=== PATIENT | male | born 2005 | race Asian ===

== ENCOUNTER 2024-01-30 20:02 | Inpatient (IN) | payer OTHER ==
[~2024-01-30] VITALS: Ht 175.3 cm; Wt 75.0 kg
[2024-01-30] MEDS ORDERED: ONDANSETRON HCL 4 MG/2 ML VIAL IVP PRN (23:45)
[2024-01-30] MEDS ORDERED: ACETAMINOPHEN 325 MG TABLET PO PRN (23:45)
[2024-01-31] MEDS: HEPARIN SODIUM,PORCINE 5,000 UNITS/ML VIAL SQ SCH
[2024-01-31 01:30] VITALS: BP 129/74; PULSE 91; RESP 18; TEMP 97.7
[2024-01-31 06:48] LABS: BASOPHILS % (AUTO) 0.5 % (0.0-2.0); HEMATOCRIT 44.5 % (41-53); HEMOGLOBIN 14.8 g/dL (13.5-17.5); LYMPHOCYTES # (AUTO) 3.1 K/uL (1.0-4.8); LYMPHOCYTES % (AUTO) 44.1 % (22.0-44.0); MEAN CORPUSCULAR HEMOGLOBIN 29.6 pg (26.0-34.0); MEAN CORPUSCULAR HGB CONC 33.2 G/dL (31.0-37.0); MEAN CORPUSCULAR VOLUME 89 fL (80-100); MONOCYTES # (AUTO) 0.6 K/uL (0.1-1.0); NEUTROPHILS # (AUTO) 3.1 K/uL (1.8-7.7); NEUTROPHILS % (AUTO) 44.4 % (40.0-70.0); PLATELET COUNT (AUTO) 163 K/uL (150-450); RED CELL DISTRIBUTION WIDTH 13.1 % (11.5-14.5); WHITE BLOOD COUNT (AUTO) 6.9 K/uL (4.5-11.0)
[2024-01-31 07:06] LABS: ANION GAP 11 mmol/L (8-16); CALCIUM, TOTAL 9.9 mg/dL (8.8-10.5); CARBON DIOXIDE 26 mmol/L (22-29); CHLORIDE 102 mmol/L (98-107); CREATININE 0.94 mg/dL (0.60-1.30); GLOMERULAR FILTR. RATE CALC > 60 mL/min (>60); GLUCOSE,RANDOM 86 mg/dL (70-110); POTASSIUM 3.9 mmol/L (3.5-5.1); SODIUM SERUM 139 mmol/L (136-145); UREA NITROGEN, BLOOD 11 mg/dL (7-18)
[2024-01-31 08:39] VITALS: BP 122/55; PULSE 78; RESP 18; TEMP 97.9
[2024-01-31] MEDS: DOCUSATE SODIUM 100 MG CAPSULE PO SCH (09:12)
[2024-01-31] MEDS: RIFAMPIN 300 MG CAPSULE PO SCH (09:13)
[2024-01-31 19:48] VITALS: BP 118/69; PULSE 72; RESP 18; TEMP 98.7
[2024-02-01 04:35] VITALS: BP 120/71; PULSE 67; RESP 18; TEMP 97.5
[2024-02-01 08:26] VITALS: BP 110/71; PULSE 74; RESP 18; TEMP 97.6
[2024-02-01 20:16] VITALS: BP 114/67; PULSE 72; RESP 18; TEMP 98.1
[2024-02-02 04:41] VITALS: BP 113/73; PULSE 67; RESP 18; TEMP 97.5
[2024-02-02 08:33] VITALS: BP 104/61; PULSE 80; RESP 18; TEMP 97.4
[2024-02-02 19:27] VITALS: BP 118/70; PULSE 81; RESP 19; TEMP 97.8
[2024-02-03 05:03] VITALS: BP 104/70; PULSE 65; RESP 18; TEMP 97.8
[2024-02-03 08:10] VITALS: BP 105/58; PULSE 80; RESP 19; TEMP 97.9
[2024-02-03 19:38] VITALS: BP 122/67; PULSE 74; RESP 19; TEMP 98.2
[2024-02-04 04:20] VITALS: BP 132/70; PULSE 79; RESP 19; TEMP 97.6
[2024-02-04 08:15] VITALS: BP 100/71; PULSE 71; RESP 18; TEMP 97.7
[2024-02-04 19:45] VITALS: BP 128/89; PULSE 67; RESP 18; TEMP 98
[2024-02-05 04:46] VITALS: BP 112/58; PULSE 71; RESP 18; TEMP 97.6
[2024-02-05 08:00] VITALS: BP 104/67; PULSE 80; RESP 18; TEMP 98.4
[2024-02-05 20:03] VITALS: BP 115/74; PULSE 69; RESP 20; TEMP 98.3
[2024-02-06 04:32] VITALS: BP 116/68; PULSE 70; RESP 20; TEMP 97.6
[2024-02-06 08:28] VITALS: BP 109/67; PULSE 74; RESP 20; TEMP 97.7
[2024-02-06 19:52] VITALS: BP 118/68; PULSE 84; RESP 20; TEMP 98.8
[2024-02-07 05:13] VITALS: BP 125/68; PULSE 75; RESP 20; TEMP 97.7
[2024-02-07 09:14] VITALS: BP 103/71; PULSE 70; RESP 20; TEMP 97.6
[2024-02-07 19:46] VITALS: BP 107/61; PULSE 76; RESP 18; TEMP 98.3
[2024-02-08 05:07] VITALS: BP 110/71; PULSE 65; RESP 18; TEMP 97.6
[2024-02-08 09:22] VITALS: BP 109/67; PULSE 67; RESP 18; TEMP 97.8
[2024-02-08 20:25] VITALS: BP 115/70; PULSE 78; RESP 18; TEMP 98.4
[2024-02-09 04:52] VITALS: BP 106/72; PULSE 85; RESP 18; TEMP 97.6
[2024-02-09 08:35] VITALS: BP 110/61; PULSE 81; RESP 20; TEMP 97.6
[2024-02-09 19:51] VITALS: BP 102/60; PULSE 84; RESP 18; TEMP 98.4
[2024-02-10 04:57] VITALS: BP 119/62; PULSE 66; RESP 18; TEMP 98.5
[2024-02-10 07:45] VITALS: BP 125/58; PULSE 82; RESP 18; TEMP 97.8
[2024-02-10 20:08] VITALS: BP 125/67; PULSE 79; RESP 18; TEMP 97.8
[2024-02-11 05:01] VITALS: BP 113/75; PULSE 76; RESP 18; TEMP 97.8
[2024-02-11 08:46] VITALS: BP 103/53; PULSE 78; RESP 20; TEMP 97.6
[2024-02-11 13:50] LABS: BASOPHILS % (AUTO) 0.5 % (0.0-2.0); EOSINOPHILS % (AUTO) 2.7 % (1.0-6.0); HEMOGLOBIN 14.5 g/dL (13.5-17.5); LYMPHOCYTES # (AUTO) 1.5 K/uL (1.0-4.8); MEAN CORPUSCULAR HEMOGLOBIN 29.4 pg (26.0-34.0); MEAN CORPUSCULAR HGB CONC 33.1 G/dL (31.0-37.0); MEAN CORPUSCULAR VOLUME 89 fL (80-100); MONOCYTES # (AUTO) 0.3 K/uL (0.1-1.0); MONOCYTES % (AUTO) 6.2 % (2.0-9.0); NEUTROPHILS % (AUTO) 60.6 % (40.0-70.0); PLATELET COUNT (AUTO) 168 K/uL (150-450); RED BLOOD CELL COUNT(AUTO) 4.94 MIL/uL (4.50-5.90); RED CELL DISTRIBUTION WIDTH 12.7 % (11.5-14.5); WHITE BLOOD COUNT (AUTO) 4.9 K/uL (4.5-11.0)
[2024-02-11 14:00] LABS: ANION GAP 8 mmol/L (8-16); CALCIUM, TOTAL 9.6 mg/dL (8.8-10.5); CARBON DIOXIDE 32 mmol/L (22-29); CHLORIDE 101 mmol/L (98-107); CREATININE 0.84 mg/dL (0.60-1.30); GLOMERULAR FILTR. RATE CALC > 60 mL/min (>60); GLUCOSE,RANDOM 117 mg/dL (70-110); POTASSIUM 3.5 mmol/L (3.5-5.1); SODIUM SERUM 141 mmol/L (136-145); UREA NITROGEN, BLOOD 8 mg/dL (7-18)
[2024-02-11 14:05] LABS: ALANINE AMINOTRANSFERASE 51 U/L (12-78); ALKALINE PHOSPHATASE 84 U/L (46-116); ASPARTATE AMINOTRANSFERASE 30 U/L (15-37); BILIRUBIN,TOTAL 0.6 mg/dL (0.1-1.0); TOTAL PROTEIN, SERUM 7.9 g/dL (6.4-8.2)
[2024-02-11 20:24] VITALS: BP 113/64; PULSE 73; RESP 20; TEMP 98.1
[2024-02-12 04:49] VITALS: BP 108/66; PULSE 83; RESP 20; TEMP 97.9
[2024-02-12 08:20] LABS: BASOPHILS % (AUTO) 0.5 % (0.0-2.0); EOSINOPHILS % (AUTO) 3.5 % (1.0-6.0); HEMATOCRIT 43.2 % (41-53); HEMOGLOBIN 14.4 g/dL (13.5-17.5); LYMPHOCYTES # (AUTO) 3.1 K/uL (1.0-4.8); LYMPHOCYTES % (AUTO) 44.4 % (22.0-44.0); MEAN CORPUSCULAR HEMOGLOBIN 29.6 pg (26.0-34.0); MEAN CORPUSCULAR HGB CONC 33.3 G/dL (31.0-37.0); MEAN CORPUSCULAR VOLUME 89 fL (80-100); MONOCYTES # (AUTO) 0.6 K/uL (0.1-1.0); NEUTROPHILS % (AUTO) 43.6 % (40.0-70.0); PLATELET COUNT (AUTO) 168 K/uL (150-450); RED BLOOD CELL COUNT(AUTO) 4.86 MIL/uL (4.50-5.90); RED CELL DISTRIBUTION WIDTH 13.1 % (11.5-14.5); WHITE BLOOD COUNT (AUTO) 6.9 K/uL (4.5-11.0)
[2024-02-12 08:31] LABS: ALANINE AMINOTRANSFERASE 45 U/L (12-78); ALBUMIN 3.9 g/dL (3.4-5.0); ALKALINE PHOSPHATASE 81 U/L (46-116); ANION GAP 7 mmol/L (8-16); ASPARTATE AMINOTRANSFERASE 27 U/L (15-37); BILIRUBIN,TOTAL 0.3 mg/dL (0.1-1.0); CALCIUM, TOTAL 9.8 mg/dL (8.8-10.5); CARBON DIOXIDE 31 mmol/L (22-29); CHLORIDE 103 mmol/L (98-107); CREATININE 0.92 mg/dL (0.60-1.30); GLOMERULAR FILTR. RATE CALC > 60 mL/min (>60); GLUCOSE,RANDOM 90 mg/dL (70-110); POTASSIUM 3.9 mmol/L (3.5-5.1); SODIUM SERUM 141 mmol/L (136-145); TOTAL PROTEIN, SERUM 7.7 g/dL (6.4-8.2); UREA NITROGEN, BLOOD 9 mg/dL (7-18)
[2024-02-12 09:22] VITALS: BP 107/63; PULSE 67; RESP 18; TEMP 97.9
[2024-02-12 20:03] VITALS: BP 114/80; PULSE 75; RESP 18; TEMP 97.6
[2024-02-13 04:49] VITALS: BP 109/62; PULSE 92; RESP 18; TEMP 97.8
[2024-02-13 08:24] VITALS: BP 120/64; PULSE 79; RESP 18; TEMP 98
[2024-02-13 19:18] VITALS: BP 124/69; PULSE 79; RESP 18; TEMP 98.5
[2024-02-14 04:30] VITALS: BP 113/65; PULSE 76; RESP 18; TEMP 98.3
[2024-02-14 07:37] VITALS: BP 98/78; PULSE 91; RESP 18; TEMP 97.8
[2024-02-14 19:52] VITALS: BP 111/68; PULSE 75; RESP 18; TEMP 98.2
[2024-02-15 04:53] VITALS: BP 114/67; PULSE 92; RESP 18; TEMP 97.8
[2024-02-15 08:21] VITALS: BP 112/68; PULSE 85; RESP 19; TEMP 98.2
[2024-02-15 19:56] VITALS: BP 120/67; PULSE 67; RESP 19; TEMP 97.1
[2024-02-16 05:08] VITALS: BP 110/72; PULSE 70; RESP 18; TEMP 97.8
[2024-02-16 08:46] VITALS: BP 105/63; PULSE 87; RESP 18; TEMP 97.7
[2024-02-16 20:00] VITALS: BP 122/65; PULSE 80; RESP 17; TEMP 98
[2024-02-17 05:14] VITALS: BP 103/55; PULSE 90; RESP 18; TEMP 97.7
[2024-02-17 08:30] VITALS: BP 99/70; PULSE 68; RESP 18; TEMP 97.6
[2024-02-17 19:39] VITALS: BP 119/62; PULSE 78; RESP 18; TEMP 97.8
[2024-02-18 05:01] VITALS: BP 101/50; PULSE 101; RESP 18; TEMP 97.7
[2024-02-18 08:59] VITALS: BP 109/48; PULSE 89; RESP 18; TEMP 97.7
[2024-02-18 19:56] VITALS: BP 115/72; PULSE 74; RESP 18; TEMP 97.9
[2024-02-19 04:31] VITALS: BP 105/57; PULSE 81; RESP 18; TEMP 97.7
[2024-02-19 08:22] VITALS: BP 106/59; PULSE 76; RESP 20; TEMP 98
[2024-02-19 19:43] VITALS: BP 120/79; PULSE 82; RESP 20; TEMP 98.3
[2024-02-20 05:51] VITALS: BP 118/50; PULSE 61; RESP 19; TEMP 97.7
[2024-02-20 08:52] VITALS: BP 112/67; PULSE 71; RESP 20; TEMP 97.8
[2024-02-20 20:45] VITALS: BP 110/66; PULSE 75; RESP 20; TEMP 98.2
[2024-02-21 05:06] VITALS: BP 107/62; PULSE 77; RESP 18; TEMP 97.7
[2024-02-21 07:41] VITALS: BP 105/66; PULSE 67; RESP 18; TEMP 97.7
[2024-02-21 19:20] VITALS: BP 125/65; PULSE 76; RESP 18; TEMP 98.5
[2024-02-22 04:25] VITALS: BP 100/55; PULSE 84; RESP 19; TEMP 97.5
[2024-02-22 08:02] VITALS: BP 97/65; PULSE 93; RESP 18; TEMP 97.6
[2024-02-22] MEDS: ETHYL ALCOHOL 62% ANTISEPTIC NASAL SANITIZER 0.6 ML AMPUL NASAL SCH (10:14)
== END 2024-02-22 16:10 | DRG 179 ==
LOC: EMS 20:02 → 6S 01-31 00:29 → 6N 02-19 15:56
PROVIDERS: ADMIT Internal Medicine; ATTEND Internal Medicine
DX: A15.9 Respiratory tuberculosis unspecified (principal); R91.8 Other nonspecific abnormal finding of lung field; Z22.7 Latent tuberculosis; F32.A Depression, unspecified
CPT/HCPCS: 71045; 80048; 80053; 83735; 85025; 87081; 99285; J1644; 36415-L1; 36415-TC